=== PATIENT | female | born 1975 | race Caucasian/White ===

== ENCOUNTER 2019-08-16 03:30 | Emergency (ER) | payer OTHER, MEDICAID ==
[~2019-08-16] VITALS: Ht 154.9 cm; Wt 65.9 kg
--- NOTE | 2019-08-16 04:02 | NUR ---
Emili contacted for case number. case #[id number]
--- NOTE | 2019-08-16 04:58 | NUR ---
[facility] Advocate, Cheryl Bernard, here to see Pt. Pt sleeping so she will return at 6 am.
--- NOTE | 2019-08-16 05:20 | NUR ---
S.O. at bedside. [facility] Advocate, carmen Luna and will be here shortly. Pt updated.
[2019-08-16] MEDS ORDERED: azithromycin 250mg tablet PO ONE (06:10)
[2019-08-16] MEDS ORDERED: metroNIDAZOLE 500mg tablet PO ONE (06:10)
[2019-08-16 06:37] LABS: CLARITY,URINE CLEAR (Clear); COLOR,URINE STRAW (Yellow); GLUCOSE, URINE NEGATIVE (Neg); KETONES,URINE NEGATIVE (Neg); LEUKOCYTE ESTERASE ,URINE NEGATIVE (Neg); NITRITES, URINE NEGATIVE (Neg); OCCULT BLOOD,URINE SMALL (Neg); PROTEIN,URINE 30 mg/dl (Neg); UROBILINOGEN,URINE 0.2 E.U/dL (0.2-1.0)
[2019-08-16 06:39] LABS: UA COLLECTION TYPE VOIDED
[2019-08-16 07:05] LABS: BACTERIA,URINE 1+ /HPF (Neg); MUCUS STRANDS NONE SEEN /LPF (Neg); RBC,URINE 0-2 /HPF (0-2); SQUAMOUS EPITHELIAL CELL,UR MODERATE /LPF (FEW); WBC,URINE 0-4 /HPF (0-4)
[2019-08-16] MEDS ORDERED: DOXYCYCLINE 100MG CAPSULE PO STA (08:13)
[2019-08-16] MEDS ORDERED: ONDA8TAB6 PO (08:15)
[2019-08-16] MEDS ORDERED: DOXY100C43 PO (08:15)
[2019-08-16] MEDS ORDERED: LORazepam 1 MG tablet PO ONE (08:15)
[2019-08-16] MEDS ORDERED: ondansetron 4mg rapidly disintigrating tab PO ONE (08:15)
--- NOTE | 2019-08-16 11:32 | NUR ---
Message left with GIOVANI Torres re: pt f/u.
--- NOTE | 2019-08-16 11:45 | NUR ---
0552: SART room readied 0600: SART verbal consent obtainedd. VS taken. [facility] pt advocate Cheryl Thaddeus bedside. 0605: Written consent obtained after process explained & questions answered. SART exam started 0805: EDMD [place] medically assessed. STD prophylaxis discussed including Tric alternative d/t med allergy. Anxiety and nausea meds ordered also. 0810: riley crackers eaten in anticipation of med administration 0820: Ordered meds administered as ordered after pt educated. Flagyl held d/t ETOH consumption less than 12 hrs ago. 0905: Pt refused offered shower. DC POC reviewed including importance of [facility] f/u for additional testing and Flagyl administration if appropriate. Pt dc'd.
[2019-08-16 12:33] VITALS: BP 127/88
== END 2019-08-16 09:05 | disposition home or self-care (01) ==
LOC: EEVIPCON 03:30 → ER 03:30
DX: T74.21XA Adult sexual abuse, confirmed, initial encounter (principal); Z88.0 Allergy status to penicillin; Z88.2 Allergy status to sulfonamides; Z88.8 Allergy status to other drugs, medicaments and biological substances
CPT/HCPCS: 81001; 99284